=== PATIENT | male | born 1955 | race Caucasian/White ===

== ENCOUNTER 2018-05-26 15:40 | Emergency (ER) | payer OTHER, SELFPAY ==
[2018-05-26] VITALS (8 sets, daily range): BP systolic 126–133; BP diastolic 71–84; PULSE 63–66; RESP 14–19; TEMP 36.7; O2SAT 94–100; BMI 34.9
--- NOTE | 2018-05-26 15:53 | ED_ITS ---
HPI - Neck Pain/Injury General Chief Complaint: Trauma Stated Complaint: 130lbs landed on head from 20ft Time Seen by Provider: 05/26/18 15:51 Source: patient Mode of arrival: EMS Limitations: no limitations History of Present Illness HPI Narrative: This 63-year-old male comes to the emergency department with complaint of trauma. Patient with standing when 2 large boards that were Um connected together fell. There been uses scaffolding and fell about 20 ft and struck the patient on his head. There is possible launch of consciousness for very short period of time. The patient is complaining of some pain in his shoulders and arms. He has some chronic back and shoulder/arm pain. State does the worse at this time. EMS gave him fentanyl and then stood him up and got him onto the gurney. They then placed the patient in a C-collar. Patient is not having any nausea or vomiting currently. He is not having any chest pain or shortness of breath. He denies any neck or back pain currently. He is not having any new weakness. He is not having any numbness. He does not know if his tetanus is up-to-date. He currently denies any major medical issues. Related Data Home Medications Medication Instructions Recorded Confirmed czlksojayly-cqwkn-erq-vit C-Mn 1 tab PO DAILY 05/26/18 05/26/18 [Flexi Joint] lecithin 1 cap PO DAILY 05/26/18 05/26/18 naproxen sodium [Aleve] 220 mg PO BID 05/26/18 05/26/18 Previous Rx's Medication Instructions Recorded ondansetron [Zofran ODT] 4 mg PO Q6-8H PRN #15 tab 05/26/18 oxycodone-acetaminophen [Percocet] 2 tab PO Q4-6H PRN #15 tab 05/26/18 Allergies Allergy/AdvReac Type Severity Reaction Status Date / Time ibuprofen Allergy Intermediate Hives Verified 05/26/18 16:30 iodine Allergy Intermediate Hives Verified 05/26/18 16:30 Review of Systems Review of Systems All systems reviewed & are unremarkable except as noted in HPI and below Constitutional Reports headache(s) (Mild) Eyes Denies blurry vision, Denies change in vision and Denies loss of vision ENT Ears, Nose, Mouth, and Throat: Denies dizziness, Reports headache(s) (Mild) and Denies neck pain Cardiovascular Denies chest pain, Denies irregular heart rhythm, Denies lightheadedness, Denies palpitations, Denies dyspnea, Denies dyspnea on exertion and Denies orthopnea Respiratory Denies cough, Denies dyspnea, Denies dyspnea on exertion and Denies wheezing Gastrointestinal Gastrointestinal: Denies abdominal pain, Denies change in bowel habits, Denies diarrhea, Denies nausea and Denies vomiting Genitourinary Denies urinary incontinence Musculoskeletal Reports as per HPI, Denies back pain, Denies neck pain, Denies numbness, Reports radiating pain into limb (Bilateral upper extremity) and Reports tingling Integumentary/Breasts Reports as per HPI (Laceration on scalp and above right brow) Neurologic Denies abnormal speech, Denies dizziness, Reports headache(s) (Mild), Denies lack of coordination, Denies focal weakness, Denies loss of vision, Denies numbness, Denies convulsions, Denies seizure-like activity, Denies sensory deficit and Reports tingling Endocrine Denies palpitations Allergic/Immunologic Denies wheezing PFSH Social History marital status: household members: spouse Smoking Status: Current every day smoker Exam Narrative Exam Narrative: GEN: C-collar prior to arrival, no backboard. Patient appears in mild distress. HEAD: Patient has a large midline laceration of his scalp that is approximately 8 cm in length, there is no galea involvement but is into the subcutaneous tissue, patient also has a small laceration above the right brow that is about a cm and a half, there is some subcutaneous involvement but nothing deeper, no raccoon/Escobar sign. NECK: Nontender, painless range of motion, trachea midline Positive Nexus criteria, there is no mid line tenderness, positive for distracting injury, no altered mental status, neuro deficit, recent EtOH. EYES: PERRLA, EOMI ENT: External inspection normal, trachea is midline, TM's are normal no hemotypanum, Nares are clear, no septal hematoma, no dental or oral injury, airway is normal and with normal occlusion, No bony tenderness RESP: Chest is nontender and has symmetric movement, no ecchymosis, breath sounds are normal no crackles, wheezes or rales CVS: Heart sounds are normal, no murmur noted, No JVD. ABG/GI: Nontender, soft, normal bowel sounds, no distention, no organomegaly, pelvic rock is negative NEURO: Oriented AOx3, neuro is grossly intact, sensation and motor is normal all 4 extremities moving, cranial nerves II through XII are intact, GCS is 15 PSYCH: Normal mood and affect SKIN: Intact except as above, warm and dry, no crepitus and without decubitus BACK: No CVA tenderness, no vertebral tenderness, no step-off's, no crepitus EXT: Atraumatic, hips are nontender, no pedal edema, normal color and temperature, normal range of motion of extremities with normal tendon exam, 5/5 muscle strength with full motion, patient does not have any decreased sensation upper extremities or lower extremities but he does have pain with light touch to the upper extremities, 2+ pulses in all four extremities Initial Vital Signs Initial Vital Signs: Vital Signs Pulse Rate 66 05/26/18 16:00 Respiratory Rate 15 05/26/18 16:00 Blood Pressure 132/74 05/26/18 16:00 Pulse Oximetry 98 05/26/18 16:00 Procedures Laceration Repair Laceration 1: Site: face (right brow) Side (If applicable): right Size (cm): 1.5 Description: linear Depth: simple, single layer Local Anesthetic: lidocaine 1% Amount of anesthesia used (mL): 2 Pre-repair: wound explored and irrigated extensively Skin layer closed with: vicryl Size (cm): 5-0 Number of sutures: 3 Technique: simple, interrupted Laceration 2: Site: scalp (midline) Size (cm): 8 Description: linear Depth: involves muscle layer Local Anesthetic: lidocaine 1% Amount of anesthesia used (mL): 10 Pre-repair: wound explored, irrigated extensively and deep structures intact (no galeal involvement) Skin layer closed with: other (ronald #12) Course Orders Ordered: ED Orders 05/26/18 15:51 CT cervical spine wo con Stat EKG-12 Lead Stat 05/26/18 15:52 CT chest abd pel w con Stat CT head/brain wo con Stat 05/26/18 16:04 Complete Blood Count AUTO DIFF Stat Comprehensive Metabolic Panel Stat Ethanol (ETOH) Stat Lipase Stat Partial Thromboplastin Time Stat Prothrombin Time INR Stat Type and Screen Stat Discontinued Medications Hydromorphone HCl (Dilaudid) 1 mg IV NOW ONE Stop: 05/26/18 17:46 Last Admin: 05/26/18 17:55 Dose: 1 mg Hydromorphone HCl (Dilaudid) 1 mg IV NOW ONE Stop: 05/26/18 16:51 Last Admin: 05/26/18 16:50 Dose: 1 mg Morphine Sulfate (Morphine Sulfate) 4 mg IV NOW ONE Stop: 05/26/18 16:39 Last Admin: 05/26/18 16:24 Dose: 4 mg Ondansetron HCl (Zofran) 4 mg IV NOW ONE Stop: 05/26/18 16:40 Last Admin: 05/26/18 16:25 Dose: 4 mg Ondansetron HCl (Zofran Odt Prepack) 1 bottle MISC SEEINSTR ONE Stop: 05/26/18 19:22 Oxycodone/Acetaminophen (Percocet 5/325) 1 tab PO NOW ONE Stop: 05/26/18 19:22 Vital Signs - 8 hr 05/26/18 16:00 05/26/18 16:30 05/26/18 17:10 Pulse Rate 66 65 64 Respiratory Rate 15 19 17 Blood Pressure [Right Arm] 132/74 133/71 133/82 Pulse Oximetry 98 100 96 05/26/18 17:45 05/26/18 18:14 Pulse Rate 63 66 Respiratory Rate 14 16 Blood Pressure [Right Arm] 126/76 Pulse Oximetry 94 99 MDM - Neck Pain/Injury Lab Data Attestation: I reviewed the patient's lab results. Result diagrams: 05/26/18 16:04 05/26/18 16:04 Lab Results 05/26/18 05/26/18 05/26/18 Range/Units 16:04 16:04 16:04 WBC 6.4 (4.5-11.0) X10^3/uL RBC 4.17 L (4.5-5.9) X10^6/uL Hgb 13.2 L (13.5-17.5) g/dL Hct 38.9 L (41-53) % MCV 93.3 (80-100) fL MCH 31.8 (26-34) PG MCHC 34.0 (30-36) % RDW 12.6 (11.6-14.8) % Plt Count 201 (150-400) X10^3/uL Neut % (Auto) 68.3 (50-75) % Lymph % (Auto) 23.2 L (25-40) % [place] % (Auto) 6.9 (3-14) % Eos % (Auto) 0.9 L (2-4) % Baso % (Auto) 0.7 (0-2) % Neut # (Auto) 4300 (8707-0474) /uL PT 12.2 (10.1-12.7) SECONDS INR 1.1 (0.9-1.3) APTT 25 L (26.4-36.2) SECONDS Sodium 140 (137-145) mmol/L Potassium 3.7 (3.4-5.1) mmol/L Chloride 105 (98-107) mmol/L Carbon Dioxide 27 (22-32) mmol/L BUN 20 (9-20) mg/dL Creatinine 0.70 (0.66-1.25) mg/dL Estimated GFR > 60.0 (>60) mL/min BUN/Creatinine Ratio 28.6 H (6-22) Glucose 97 (80-110) mg/dL Calcium 8.6 (8.4-10.2) mg/dL Total Bilirubin 0.5 (0.2-1.3) mg/dL AST 32 (17-59) IU/L ALT 43 (21-72) IU/L Alkaline Phosphatase 52 (38-126) U/L Total Protein 6.8 (6.3-8.2) g/dL Albumin 3.8 (3.5-5.0) g/dL Globulin 3.0 (1.7-4.1) g/dL Albumin/Globulin Ratio 1.3 (1.0-2.8) Lipase 79 (23-300) U/L Ethyl Alcohol < 10 mg/dL Blood Type Antibody Screen 05/26/18 Range/Units 16:04 WBC (4.5-11.0) X10^3/uL RBC (4.5-5.9) X10^6/uL Hgb (13.5-17.5) g/dL Hct (41-53) % MCV (80-100) fL MCH (26-34) PG MCHC (30-36) % RDW (11.6-14.8) % Plt Count (150-400) X10^3/uL Neut % (Auto) (50-75) % Lymph % (Auto) (25-40) % [place] % (Auto) (3-14) % Eos % (Auto) (2-4) % Baso % (Auto) (0-2) % Neut # (Auto) (9142-4475) /uL PT (10.1-12.7) SECONDS INR (0.9-1.3) APTT (26.4-36.2) SECONDS Sodium (137-145) mmol/L Potassium (3.4-5.1) mmol/L Chloride (98-107) mmol/L Carbon Dioxide (22-32) mmol/L BUN (9-20) mg/dL Creatinine (0.66-1.25) mg/dL Estimated GFR (>60) mL/min BUN/Creatinine Ratio (6-22) Glucose (80-110) mg/dL Calcium (8.4-10.2) mg/dL Total Bilirubin (0.2-1.3) mg/dL AST (17-59) IU/L ALT (21-72) IU/L Alkaline Phosphatase (38-126) U/L Total Protein (6.3-8.2) g/dL Albumin (3.5-5.0) g/dL Globulin (1.7-4.1) g/dL Albumin/Globulin Ratio (1.0-2.8) Lipase (23-300) U/L Ethyl Alcohol mg/dL Blood Type A Negative Antibody Screen Negative Point of Care Testing Glucose POC 98 Urine Dip Bedside Urine Glucose Negative Bedside Urine Bilirubin - Negative Bedside Urine Ketone - Negative Urine Specific Devine 1.015 Bedside Urine Occult Blood - Negative Bedside Urine pH 6.0 Bedside Urine Protein - Negative Bedside Urine Urobilinogen - Negative Bedside Urine Nitrite - Negative Bedside Urine Leukocytes - Negative Esterase Imaging Data CT scan - head: Radiologist's impression: Rj La 63 M 1955 Allergy/Adv: ibuprofen, iodine CLOSE Head CT (Signed) Ruiz Kidd - 05/26/18 Chest/Abdomen/Pelvis CT (Signed) Patricio Bashir - 05/26/[address] (Signed) Ruiz Kidd - 05/26/18 View Report History [address] [address] [address] Scan Report Signed Patient: Rj La MR#: [id number] : 1955 Acct:[id number] Age/Sex: 63 / M Date of Service: 05/26/18 Loc: ED Accession Number: [id number] Procedure: CT head/brain wo con Ordering Provider: Alisia Magallanes D.O. PROCEDURE: CT HEAD/BRAIN WO CON INDICATIONS: 130# shelf fell on head TECHNIQUE: Noncontrast 4.5 mm thick angled axial sections acquired from the foramen magnum to the vertex, with coronal and sagittal reformats. For radiation dose reduction, the following was used: automated exposure control, adjustment of mA and/or kV according to patient size. COMPARISON: None. FINDINGS: Image quality: Excellent. CSF spaces: Basal cisterns are patent. No extra-axial fluid collections. The ventricles are symmetric in size and shape. Brain: No intracranial hemorrhage, mass, or mass effect. The johnson-white matter junction appears preserved. Skull and face: There is soft tissue swelling and a laceration of the scalp at the vertex with associated small subcutaneous hematoma. Calvarium and visualized facial bones are intact, without displaced or depressed fracture identified. Sinuses: Visualized sinuses and mastoids are clear. IMPRESSION: 1. No acute intracranial abnormality. 2. Soft tissue laceration with subcutaneous hematoma at the vertex without underlying fracture. Dictated by: Ruiz Kidd M.D. on 05/26/2018 at 15:06 Approved by: Ruiz Kidd M.D. on 05/26/2018 at 15:08 CT C-spine: Radiologist's impression: [place] [address] CT Scan Report Signed Patient: Rj La MR#: [id number] : 1955 Acct:[id number] Age/Sex: 63 / M Date of Service: 05/26/18 Loc: ED Accession Number: [id number] Procedure: CT cervical spine wo con Ordering Provider: Alisia Magallanes D.O. PROCEDURE: CT CERVICAL SPINE WO CON INDICATIONS: 130# shelf fell on head TECHNIQUE: Noncontrast 3 mm thick sections acquired from the skull base to the T4 level. Sagittal and coronal reformats were then constructed. For radiation dose reduction, the following was used: automated exposure control, adjustment of mA and/or kV according to patient size. COMPARISON: None. FINDINGS: Image quality: Excellent. Bones: No fractures or dislocations. The there is multilevel mild disc space narrowing with mild osteophytosis and subchondral sclerosis in the lower lumbar spine most prominent at C6-C7. Mild multilevel uncovertebral and facet arthropathy also demonstrated. Visualized superior ribs are intact. Soft tissues: Prevertebral soft tissues are normal in thickness. No paravertebral hematomas. No apical pneumothoraces. IMPRESSION: 1. No fracture or subluxation. 2. Mild multilevel degenerative changes most prominent in the lower cervical spine. Dictated by: Ruiz Kidd M.D. on 05/26/2018 at 15:08 Approved by: Ruiz Kidd M.D. on 05/26/2018 at 15:12 CT chest abdomen pelvis: Radiologist's impression: CT Scan Report Signed Patient: Rj La MR#: [id number] : 1955 Acct:[id number] Age/Sex: 63 / M Date of Service: 05/26/18 Loc: ED Accession Number: [id number] Procedure: CT chest abd pel w con Ordering Provider: Alisia Magallanes D.O. PROCEDURE: CT CHEST ABD PEL W CON INDICATIONS: 130# shelf fell on head TECHNIQUE: After the administration of intravenous contrast, 5 mm thick sections acquired from the lung apices to the symphysis. 5 mm coronal and sagittal reformats were performed, with additional 7 mm MIP reformats through the lungs. For radiation dose reduction, the following was used: automated exposure control, adjustment of mA and/or kV according to patient size. COMPARISON: None. FINDINGS: Image quality: Excellent. CHEST: Lungs and pleura: No acute airspace opacities. No pleural effusions or pneumothorax. Central and peripheral airways appear patent and normal in caliber. Note is made of a radiodensity that measures up to 6 mm in dimension, slightly spiculated, at the right midlung. This is located within the within the lateral right lower lobe, seen on series 12 image 49. Mediastinum: Heart size is normal. No pericardial effusion. No mediastinal or hilar adenopathy by size criteria. Thoracic aorta and central pulmonary arteries are normal in size. Esophagus is normal in caliber. No hiatal hernia. Chest wall: No axillary or supraclavicular adenopathy by size criteria. Thyroid gland appears normal. ABDOMEN: Solid organs: Liver is normal in size and enhancement. Several small scattered simple appearing hepatic and renal cysts are present. Gallbladder appears normal. Biliary system is non dilated. Pancreas enhances normally. Spleen is normal in size and enhancement. No adrenal nodules. Kidneys demonstrate normal size and enhancement, without hydronephrosis. Peritoneum and bowel: Bowel loops demonstrate normal wall thickness and caliber. No free fluid or air. Nodes and vessels: No retroperitoneal or mesenteric adenopathy by size criteria. Aorta and inferior vena cava are normal in size. Miscellaneous: No ventral hernias. PELVIS: Genitourinary: Bladder wall thickness is normal. Miscellaneous: No inguinal hernias or adenopathy. Bones: No suspicious bony lesions. No vertebral body compression fractures. IMPRESSION: No trauma found. Incidental finding of a 6 mm right midlung nodule , within the lateral aspect of the right lower lobe, and a followup noncontrast chest CT is recommended in 6 months to further assess this abnormality and confirm absence of bladder changer time. No prior comparison CT is available through this area for review. Dictated by: Patricio Bashir M.D. on 05/26/2018 at 16:14 Approved by: Patricio Bashir M.D. on 05/26/2018 at 16:19 ECG Data Attestation: I personally reviewed and interpreted this ECG as follows: Interpretation: Sinus bradycardia rate of 57, P are 187, [place] 107 QTC of 412. No ST elevation depression appreciated. Nonspecific changes. MDM Narrative Medical decision making narrative: Patient arrived with was described as 130 lb set of orders that were being uses scaffolding falling onto the patient's head with knocking to him to the ground in a brief loss of consciousness. Patient was complaining of some pain in his upper extremities although no pain in the neck or back specifically. Based on the mechanism of his injury CT of head, neck as well as chest abdomen pelvis was elected to be ordered. Patient's lab work did not show any acute changes. Imaging only showed a small incidental pulmonary nodule which the patient was informed of and they are aware is present. Patient neuro exam was normal although he did have pain into both arms patient has had a problem in the past with pain in both upper extremities at the same time secondary to a traumatic injury that caused his pectoral muscle to be pulled from the bone, this is the way the patient has described it. Um he has had increased pain from his normal. He did respond to pain medications in the pain has subsequently improved. We did discuss that if he had worsening symptoms or any new weakness or, tingling, paresthesias he should return as there is always potential for nerve her spinal cord injury that is not noted on CT imaging. Patient did not have any bony tenderness to his neck exam any had full range of motion without any pain. He had a large laceration on his scalp as well as a small on his brow which were both sutured. He did have nausea and vomiting after narcotics which is typical for him. I suspect he also has a concussion and was given some Zofran to take with pain medication. Also given concussion directions to him as well as his at bedside. Discharge Plan Departure Patient Disposition: Home Clinical Impression: Concussion, Laceration of scalp, Eyebrow laceration, Acute extremity pain Instructions: DI for Concussion Activity Restrictions/Additional Instructions: Return to the emergency department if you have sudden severe headaches comma decreased mental status, persistent vomiting, new weakness or numbness or rapidly increasing pain in her upper extremities or neck. If you have new numbness or tingling in her lower extremities. Signs of infection at your laceration sites. Take antinausea medication about 10 or 15 min prior to taking the pain medication. Pain medication can make you sleepy do not drive, perform hazards activities or make any major decisions while taking it. Wound Care: Keep wound(s) clean and dry. Wash daily with soap and water only. Do not use over the counter products (alcohol or peroxide)on the wounds unless instructed by a physician. If wound condition worsens (increased/expanding redness, developing fluid blisters, or worsening pain), either contact your doctor for an urgent re- assessment , or return to the Emergency Department. Return to the Emergency Department for any new or worsening symptoms. Return to the ED, urgent care, or vist a primary care doctor for removal or suture or ronald in 7 to 10 days Return if fever greater than 100.4 Fahrenheit, increased swelling, increasing pain or worsening symptoms such as increased discharge or spreading redness. Use warm compresses 3 times daily for 20 minutes to the affected area. If there is packing in place do not pull it out, if it falls out do not try to replace it. Prescriptions: New oxycodone-acetaminophen [Percocet] 5-325 mg tablet 2 tab PO Q4-6H PRN (Reason: pain) Qty: 15 RF: 0 ondansetron [Zofran ODT] 4 mg tablet,disintegrating 4 mg PO Q6-8H PRN (Reason: nausea and vomiting) Qty: 15 RF: 0 No Action naproxen sodium [Aleve] 220 mg Tablet 220 mg PO BID RF: 0 [id number]-jsdwy-cqc-vit C-Mn [Flexi Joint] 500-400-166.6 mg Tablet 1 tab PO DAILY RF: 0 lecithin 1 cap PO DAILY RF: 0
[2018-05-26 16:18] LABS: Add Manual Diff / Slide Review NO; Basophils Percent Auto 0.7 % (0-2); Eosinophils Percent Auto 0.9 % (2-4); Hematocrit 38.9 % (41-53); Hemoglobin 13.2 g/dL (13.5-17.5); Lymphocytes Percent Auto 23.2 % (25-40); Mean Corpuscular Hemoglobin 31.8 PG (26-34); Mean Corpuscular Volume 93.3 fL (80-100); Monocytes Percent Auto 6.9 % (3-14); Neutrophils Absolute Auto 4300 /uL (3000-5900); Neutrophils Percent Auto 68.3 % (50-75); Platelet Count 201 X10^3/uL (150-400); Red Blood Cell Count 4.17 X10^6/uL (4.5-5.9); Red Cell Distribution Width 12.6 % (11.6-14.8); White Blood Cell Count 6.4 X10^3/uL (4.5-11.0)
[2018-05-26] MEDS: MORPHINE 5 MG/ML INJ 4 MG IV (16:24)
[2018-05-26 16:25] LABS: INR 1.1 (0.9-1.3); Prothrombin Time 12.2 SECONDS (10.1-12.7)
[2018-05-26] MEDS: ONDANSETRON 4 MG/2 ML INJ IV ×2 (16:25→19:48)
[2018-05-26 16:28] LABS: PTT Partial Thromboplastin Tim 25 SECONDS (26.4-36.2)
[2018-05-26 16:31] LABS: Alanine Aminotransferase 43 IU/L (21-72); Albumin 3.8 g/dL (3.5-5.0); Albumin Globulin Ratio 1.3 (1.0-2.8); Alkaline Phosphatase 52 U/L (38-126); Aspartate Aminotransferase 32 IU/L (17-59); BUN Creatinine Ratio 28.6 (6-22); Bilirubin Total 0.5 mg/dL (0.2-1.3); Blood Urea Nitrogen 20 mg/dL (9-20); Calcium 8.6 mg/dL (8.4-10.2); Carbon Dioxide 27 mmol/L (22-32); Chloride 105 mmol/L (98-107); Estimated Glomerular Filt Rate > 60.0 mL/min (>60); Ethanol (ETOH) < 10 mg/dL; Glucose 97 mg/dL (80-110); HEMOLYSIS < 15 (0-50); Lipase 79 U/L (23-300); Potassium 3.7 mmol/L (3.4-5.1); Sodium 140 mmol/L (137-145); Total Protein 6.8 g/dL (6.3-8.2)
[2018-05-26] MEDS: DIPHTH,PERTUSS(ACELL),TET VAC 0.5 ML SYRINGE IM (16:33)
[2018-05-26] MEDS: HYDROMORPHONE 1 MG INJ IV ×2 (16:50→17:55)
--- NOTE | 2018-05-26 16:53 | PC.NURSE ---
please see trauma flowsheet
[2018-05-26] MEDS: ONDANSETRON 4 MG ODT PREPACK 1 BOTTLE MISC (19:48)
[2018-05-26] MEDS: OXYCODONE/ACETAMINOPHEN 5/325 TABLET 1 TAB PO (19:50)
--- NOTE | 2018-05-26 19:52 | PC.NURSE ---
pt with head wounds. first wound is above right eyebrow. Dr. Magallanes sutured. second head wound on top of head required multiple ronald and surgiseal over the ronald. applied 4x4 with abdominal binder over. applied kerlix and stockingnette to hold dressing in place. pt tolerated well. pt had some episodes of vomitting during his hospital stay.
== END 2018-05-26 19:58 | disposition home or self-care (01) ==
PROVIDERS: Emergency Provider Emergency Medicine; Family Provider Nurse Practitioner Family; PCP Nurse Practitioner Family
DX: S06.0X0A Concussion without loss of consciousness, initial encounter (principal); S01.01XA Laceration without foreign body of scalp, initial encounter; S01.119A Laceration without foreign body of unspecified eyelid and periocular area, initial encounter; W20.8XXA Other cause of strike by thrown, projected or falling object, initial encounter
CPT/HCPCS: 12004; 12011; 36415; 70450; 71260; 72125; 74177; 80053; 80320; 81003; 82962; 83690; 85025; 85610; 85730; 86850; 86900; 86901; 90715; 93005; 96374; 96375; 96376; 99285; 99291; J1170; J2270; J2405; Q9967

== ENCOUNTER 2018-05-27 14:37 | Emergency (ER) | payer OTHER, SELFPAY ==
[2018-05-27 14:39] VITALS: BP 128/88; PULSE 68; RESP 20; TEMP 36.1; O2SAT 98; BMI 33.7
--- NOTE | 2018-05-27 14:50 | ED_ITS ---
HPI - Nausea/Vomiting/Diarrhea <AMARA Harmon - Last Filed: 05/27/18 22:28> General Chief complaint: Nausea/Vomiting/Diarrhea Stated complaint: NAUSEA Time Seen by Provider: 05/27/18 14:49 Source: patient Mode of arrival: ambulatory Limitations: no limitations History of Present Illness HPI Narrative: 63-year-old healthy male that is a smoker here for complaint of nausea vomiting today. He states he had 5 episodes of vomiting today. He was seen yesterday for head trauma after board fell approximately 20 ft landing on top of his head. Imaging was obtained yesterday with head CT and were negative for any acute findings. Laceration to top of his scalp was closed with ronald. He denies any loss of consciousness today. He states he may have had a period of brief loss of consciousness yesterday right after the incident he is ambulatory into the emergency room. He has been using Zofran ODT to help with nausea vomiting however he states he still having nausea vomiting. He has also been using Percocet as needed for discomfort. MD complaint: vomiting Related Data Home Medications Medication Instructions Recorded Confirmed ijykiddecne-jkxin-klc-vit C-Mn 1 tab PO DAILY 05/26/18 05/27/18 [Flexi Joint] lecithin 1 cap PO DAILY 05/26/18 05/27/18 naproxen sodium [Aleve] 220 mg PO BID 05/26/18 05/27/18 Previous Rx's Medication Instructions Recorded ondansetron [Zofran ODT] 4 mg PO Q6-8H PRN #15 tab 05/26/18 oxycodone-acetaminophen [Percocet] 2 tab PO Q4-6H PRN #15 tab 05/26/18 promethazine 25 mg PO Q6H PRN #16 tab 05/27/18 Allergies Allergy/AdvReac Type Severity Reaction Status Date / Time ibuprofen Allergy Intermediate Hives Verified 05/26/18 16:30 iodine Allergy Intermediate Hives Verified 05/26/18 16:30 Review of Systems <AMARA Harmon - Last Filed: 05/27/18 22:28> Constitutional Denies chills, Denies fever(s), Denies lethargy and Denies weakness Eyes Denies change in vision, Denies eye discharge, Denies irritation and Denies loss of vision ENT Ears, Nose, Mouth, and Throat: Denies change in voice, Denies neck pain and Denies sore throat Cardiovascular Denies chest pain, Denies irregular heart rhythm, Denies lightheadedness, Denies palpitations, Denies dyspnea, Denies dyspnea on exertion and Denies orthopnea Respiratory Denies cough, Denies dyspnea, Denies dyspnea on exertion and Denies wheezing Gastrointestinal Gastrointestinal: Reports vomiting Genitourinary Denies hematuria, Denies flank pain, Denies urinary incontinence and Denies urinary urgency Musculoskeletal Denies neck pain Integumentary/Breasts Denies pruritus, Denies erythema, Denies rash and Denies wounds Neurologic Denies confusion, Denies loss of vision and Denies weakness Psychiatric Denies anxiety, Denies confusion, Denies depression, Denies homicidal ideation and Denies suicidal ideation Endocrine Denies palpitations Hematologic/Lymphatic Denies easy bruising Allergic/Immunologic Denies wheezing Exam <AMARA Harmon - Last Filed: 05/27/18 22:28> Initial Vital Signs Initial Vital Signs: Vital Signs Temperature 97.0 F L 05/27/18 14:39 Pulse Rate 68 05/27/18 14:39 Respiratory Rate 20 05/27/18 14:39 Blood Pressure 128/88 05/27/18 14:39 Pulse Oximetry 98 05/27/18 14:39 Const General: cooperative and well developed Nutritional Appearance: well nourished Orientation: alert, awake, oriented x3 and not confused [facility] Head: other ( 8 cm laceration to top of scalp appears to be healing well with no bleeding. No signs of infection.) Ears: external ears normal Nose: external nose normal and No nasal discharge Mouth: oral mucosae normal and moist mucous membranes Eyes Conjunctivae: conjunctivae normal Sclera: sclerae normal Pupils: PERRL EOM: EOM intact bilaterally Neck Neck: normal visual inspection, trachea midline, No lymphadenopathy, No midline deformity and No JVD Lymphatic: No lymphedema Resp Effort & Inspection: normal respiratory effort, able to speak in complete sentences, no respiratory distress and no use of accessory muscles Auscultation: clear to auscultation bilaterally, no rales, no rhonchi and no wheezes Cardio Rate: regular rate Rhythm: regular rhythm Heart Sounds: no click, no gallops, no murmurs and no rubs Pulses: normal peripheral pulses GI Inspection: non-distended Palpation: soft, no hepatosplenomegaly, No guarding, No pulsatile mass and No tender Auscultation: normal bowel sounds Skin General: no rashes or lesions noted, No jaundice and No petechiae Neuro General: alert, oriented x3, gait normal and no focal motor deficits Speech: speech normal <Mikel Mas DO - Last Filed: 05/28/18 07:18> Initial Vital Signs Initial Vital Signs: Vital Signs Temperature 97.0 F L 05/27/18 14:39 Pulse Rate 68 05/27/18 14:39 Respiratory Rate 20 05/27/18 14:39 Blood Pressure 128/88 05/27/18 14:39 Pulse Oximetry 98 05/27/18 14:39 Course <AMARA Harmon - Last Filed: 05/27/18 22:28> Orders Ordered: Discontinued Medications Acetaminophen (Tylenol) 650 mg PO NOW ONE Stop: 05/27/18 16:45 Last Admin: 05/27/18 16:49 Dose: 650 mg Sodium Chloride (Normal Saline 0.9%) 1,000 mls @ 1,000 mls/hr IV BOLUS ONE Stop: 05/27/18 16:33 Last Infusion: 05/27/18 17:11 Dose: 0 mls/hr Admin: 05/27/18 15:41 Dose: 1,000 mls/hr Ondansetron HCl (Zofran) 4 mg IV NOW ONE Stop: 05/27/18 15:35 Last Admin: 05/27/18 15:41 Dose: 4 mg Vital Signs - 8 hr 05/27/18 14:39 05/27/18 17:08 Temperature 97.0 F L Pulse Rate 68 68 Respiratory Rate 20 15 Blood Pressure 128/88 117/79 Pulse Oximetry 98 99 <Mikel Mas DO - Last Filed: 05/28/18 07:18> Orders Ordered: Discontinued Medications Acetaminophen (Tylenol) 650 mg PO NOW ONE Stop: 05/27/18 16:45 Last Admin: 05/27/18 16:49 Dose: 650 mg Sodium Chloride (Normal Saline 0.9%) 1,000 mls @ 1,000 mls/hr IV BOLUS ONE Stop: 05/27/18 16:33 Last Infusion: 05/27/18 17:11 Dose: 0 mls/hr Admin: 05/27/18 15:41 Dose: 1,000 mls/hr Ondansetron HCl (Zofran) 4 mg IV NOW ONE Stop: 05/27/18 15:35 Last Admin: 05/27/18 15:41 Dose: 4 mg Vital Signs - 8 hr 05/27/18 14:39 05/27/18 17:08 Temperature 97.0 F L Pulse Rate 68 68 Respiratory Rate 20 15 Blood Pressure 128/88 117/79 Pulse Oximetry 98 99 MDM - Nausea/Vomiting/Diarrhea <AMARA Harmon - Last Filed: 05/27/18 22:28> Lab Data Result diagrams: 05/27/18 15:40 05/27/18 15:40 Lab Results 05/27/18 05/27/18 Range/Units 15:40 15:40 WBC 6.6 (4.5-11.0) X10^3/uL RBC 4.51 (4.5-5.9) X10^6/uL Hgb 14.6 (13.5-17.5) g/dL Hct 41.8 (41-53) % MCV 92.7 (80-100) fL MCH 32.3 (26-34) PG MCHC 34.9 (30-36) % RDW 12.6 (11.6-14.8) % Plt Count 213 (150-400) X10^3/uL Neut % (Auto) 74.0 (50-75) % Lymph % (Auto) 17.6 L (25-40) % [place] % (Auto) 7.5 (3-14) % Eos % (Auto) 0.5 L (2-4) % Baso % (Auto) 0.4 (0-2) % Neut # (Auto) 4900 (3613-3332) /uL Sodium 144 (137-145) mmol/L Potassium 3.8 (3.4-5.1) mmol/L Chloride 102 (98-107) mmol/L Carbon Dioxide 30 (22-32) mmol/L BUN 20 (9-20) mg/dL Creatinine 0.60 L (0.66-1.25) mg/dL Estimated GFR > 60.0 (>60) mL/min BUN/Creatinine Ratio 33.3 H (6-22) Glucose 104 (80-110) mg/dL Calcium 9.5 (8.4-10.2) mg/dL Total Bilirubin 0.8 (0.2-1.3) mg/dL AST 30 (17-59) IU/L ALT 44 (21-72) IU/L Alkaline Phosphatase 60 (38-126) U/L Total Protein 7.6 (6.3-8.2) g/dL Albumin 4.4 (3.5-5.0) g/dL Globulin 3.2 (1.7-4.1) g/dL Albumin/Globulin Ratio 1.4 (1.0-2.8) Imaging Data CT scan - head: Radiologist's impression: [address] [address] [address] Scan Report Signed Patient: Rj La [facility]#: [id number] : 7Acct:[id number] Age/Sex: 63 / MDate of Service: 05/27/18 Loc: ED Accession Number: [id number] Procedure: CT head/brain wo con Ordering Provider: Johnnie Pro PROCEDURE: CT HEAD/BRAIN WO CON INDICATIONS: head injury yesterday with frequent vomiting today TECHNIQUE: Noncontrast 4.5 mm thick angled axial sections acquired from the foramen magnum to the vertex, with coronal and sagittal reformats. For radiation dose reduction, the following was used: automated exposure control, adjustment of mA and/or kV according to patient size. COMPARISON: [facility], CT, CT HEAD/BRAIN WO CON, 05/26/2018, 15:36. FINDINGS: Image quality: Excellent. CSF spaces: Basal cisterns are patent. No extra-axial fluid collections. Ventricles are normal in size and shape. Brain: No midline shift. No intracranial masses or hemorrhage. Mello-white matter interface is normal. Skull and face: Calvarium and visualized facial bones are intact, without suspicious lesions. Anterior midline scalp ronald. Mild posterior scalp soft tissue swelling. Sinuses: Visualized sinuses and mastoids are clear. IMPRESSION: No acute intracranial process. Post traumatic sequela in the scalp. Dictated by: Tashi Dobbs M.D. on 05/27/2018 at 15:57 Approved by: Tashi Dobbs M.D. on 05/27/2018 at 15:59 [facility] Narrative Medical decision making narrative: Repeat CT scan of the head was obtained today and was negative for any acute findings. CBC and Chem panel were obtained were unremarkable. Signs and symptoms present as secondary to post concussive syndrome. Will add Phenergan to help with nausea vomiting to the Zofran. Will try using Tylenol as needed for discomfort and holding on Percocet unless having breakthrough pain is see if it helps his nausea vomiting. Plenty of fluids and rest. Follow up with primary care provider the next couple days for re-evaluation. For any worsening symptoms return to the emergency room. <Mikel Mas, DO - Last Filed: 05/28/18 07:18> Lab Data Lab Results 05/27/18 05/27/18 Range/Units 15:40 15:40 WBC 6.6 (4.5-11.0) X10^3/uL RBC 4.51 (4.5-5.9) X10^6/uL Hgb 14.6 (13.5-17.5) g/dL Hct 41.8 (41-53) % MCV 92.7 (80-100) fL MCH 32.3 (26-34) PG MCHC 34.9 (30-36) % RDW 12.6 (11.6-14.8) % Plt Count 213 (150-400) X10^3/uL Neut % (Auto) 74.0 (50-75) % Lymph % (Auto) 17.6 L (25-40) % [place] % (Auto) 7.5 (3-14) % Eos % (Auto) 0.5 L (2-4) % Baso % (Auto) 0.4 (0-2) % Neut # (Auto) 4900 (2970-1321) /uL Sodium 144 (137-145) mmol/L Potassium 3.8 (3.4-5.1) mmol/L Chloride 102 (98-107) mmol/L Carbon Dioxide 30 (22-32) mmol/L BUN 20 (9-20) mg/dL Creatinine 0.60 L (0.66-1.25) mg/dL Estimated GFR > 60.0 (>60) mL/min BUN/Creatinine Ratio 33.3 H (6-22) Glucose 104 (80-110) mg/dL Calcium 9.5 (8.4-10.2) mg/dL Total Bilirubin 0.8 (0.2-1.3) mg/dL AST 30 (17-59) IU/L ALT 44 (21-72) IU/L Alkaline Phosphatase 60 (38-126) U/L Total Protein 7.6 (6.3-8.2) g/dL Albumin 4.4 (3.5-5.0) g/dL Globulin 3.2 (1.7-4.1) g/dL Albumin/Globulin Ratio 1.4 (1.0-2.8) Discharge Plan Departure Patient Disposition: Home Clinical Impression: Post concussion syndrome Discharge Date/Time: 05/27/18 17:12 Interventions: ED Discharge Assessment Last Done: 05/27/18 17:08 Instructions: DI for Postconcussion Syndrome Activity Restrictions/Additional Instructions: CT of the head was obtained and was negative for any acute findings. Laboratory results were unremarkable. Signs and symptoms present as a nausea vomiting secondary to post concussive syndrome. Continue using the Zofran as prescribed for nausea. Phenergan is added to help for nausea vomiting not covered by the Zofran use as directed. Use Tylenol as needed for any discomfort. Try to hold on Percocet as this can increasednausea and vomiting for significant pain not covered by the Tylenol. Follow up with primary care provider in the next couple days for re-evaluation. Plenty of fluids and rest. For any worsening symptoms return to the emergency room. Prescriptions: New promethazine 25 mg tablet 25 mg PO Q6H PRN (Reason: nausea and vomiting) Qty: 16 RF: 0 No Action naproxen sodium [Aleve] 220 mg Tablet 220 mg PO BID RF: 0 gbxssitszfd-eioyk-ueo-vit C-Mn [Flexi Joint] 500-400-166.6 mg Tablet 1 tab PO DAILY RF: 0 lecithin 1 cap PO DAILY RF: 0 oxycodone-acetaminophen [Percocet] 5-325 mg tablet 2 tab PO Q4-6H PRN (Reason: pain) Qty: 15 RF: 0 ondansetron [Zofran ODT] 4 mg tablet,disintegrating 4 mg PO Q6-8H PRN (Reason: nausea and vomiting) Qty: 15 RF: 0 Referrals: Jacey Robertson ARNP [Primary Care Provider] - <Mikel Mas DO - Last Filed: 05/28/18 07:18> Cosign ED Attending Cosignature Attestation: I was immediately available in the department for consultation. Documentation has been reviewed. I agree with assessment and plan.
--- NOTE | 2018-05-27 15:33 | DI.CT.S_ITS ---
PROCEDURE: CT HEAD/BRAIN WO CON INDICATIONS: head injury yesterday with frequent vomiting today TECHNIQUE: Noncontrast 4.5 mm thick angled axial sections acquired from the foramen magnum to the vertex, with coronal and sagittal reformats. For radiation dose reduction, the following was used: automated exposure control, adjustment of mA and/or kV according to patient size. COMPARISON: [facility], CT, CT HEAD/BRAIN WO CON, 05/26/2018, 15:36. FINDINGS: Image quality: Excellent. CSF spaces: Basal cisterns are patent. No extra-axial fluid collections. Ventricles are normal in size and shape. Brain: No midline shift. No intracranial masses or hemorrhage. Mello-white matter interface is normal. Skull and face: Calvarium and visualized facial bones are intact, without suspicious lesions. Anterior midline scalp ronald. Mild posterior scalp soft tissue swelling. Sinuses: Visualized sinuses and mastoids are clear. IMPRESSION: No acute intracranial process. Post traumatic sequela in the scalp. Dictated by: Tashi Dobbs M.D. on 05/27/2018 at 15:57 Approved by: Tashi Dobbs M.D. on 05/27/2018 at 15:59
[2018-05-27] MEDS: SODIUM CHLORIDE 0.9% 1,000 ML 1000 ML IV (15:41)
[2018-05-27] MEDS: ONDANSETRON 4 MG/2 ML INJ IV (15:41)
[2018-05-27 15:48] LABS: Add Manual Diff / Slide Review NO; Basophils Percent Auto 0.4 % (0-2); Eosinophils Percent Auto 0.5 % (2-4); Hematocrit 41.8 % (41-53); Hemoglobin 14.6 g/dL (13.5-17.5); Lymphocytes Percent Auto 17.6 % (25-40); Mean Corpuscular HGB Conc 34.9 % (30-36); Mean Corpuscular Hemoglobin 32.3 PG (26-34); Mean Corpuscular Volume 92.7 fL (80-100); Monocytes Percent Auto 7.5 % (3-14); Neutrophils Absolute Auto 4900 /uL (3000-5900); Platelet Count 213 X10^3/uL (150-400); Red Blood Cell Count 4.51 X10^6/uL (4.5-5.9); Red Cell Distribution Width 12.6 % (11.6-14.8); White Blood Cell Count 6.6 X10^3/uL (4.5-11.0)
[2018-05-27 16:04] LABS: Alanine Aminotransferase 44 IU/L (21-72); Albumin 4.4 g/dL (3.5-5.0); Albumin Globulin Ratio 1.4 (1.0-2.8); Alkaline Phosphatase 60 U/L (38-126); Aspartate Aminotransferase 30 IU/L (17-59); BUN Creatinine Ratio 33.3 (6-22); Bilirubin Total 0.8 mg/dL (0.2-1.3); Blood Urea Nitrogen 20 mg/dL (9-20); Calcium 9.5 mg/dL (8.4-10.2); Carbon Dioxide 30 mmol/L (22-32); Chloride 102 mmol/L (98-107); Estimated Glomerular Filt Rate > 60.0 mL/min (>60); Globulin 3.2 g/dL (1.7-4.1); Glucose 104 mg/dL (80-110); HEMOLYSIS < 15 (0-50); Potassium 3.8 mmol/L (3.4-5.1); Sodium 144 mmol/L (137-145); Total Protein 7.6 g/dL (6.3-8.2)
[2018-05-27] MEDS: ACETAMINOPHEN 325 MG TABLET 650 MG PO (16:49)
[2018-05-27 17:08] VITALS: BP 117/79; PULSE 68; RESP 15; O2SAT 99
== END 2018-05-27 17:12 | disposition home or self-care (01) ==
PROVIDERS: Emergency Provider Nurse Practitioner Family; Family Provider Nurse Practitioner Family; PCP Nurse Practitioner Family
DX: F07.81 Postconcussional syndrome (principal)
CPT/HCPCS: 36591; 70450; 80053; 85025; 96361; 96374; 99283; 99284; J2405

== ENCOUNTER 2018-06-03 11:11 | Emergency (ER) | payer OTHER, SELFPAY ==
[2018-06-03 11:14] VITALS: BP 118/77; PULSE 66; RESP 18; TEMP 36.3; O2SAT 95
--- NOTE | 2018-06-03 13:43 | ED.SKABFB ---
HPI - Skin/Abscess/Foreign Bdy <AMARA Harmon - Last Filed: 06/03/18 22:11> General Chief complaint: Skin/Abscess/Foreign Body Stated complaint: Remove stiches and andres from head Time Seen by Provider: 06/03/18 13:56 Source: patient Mode of arrival: ambulatory Limitations: no limitations History of Present Illness HPI narrative: 63-year-old healthy male visit everyday smoker here for suture and staple removal. Sutures were placed on the 26 of May after a board fell on his head of a construction site. He states that he has had no signs and symptoms of infection. He denies any other concerns or complaints at this time. He states that he is feeling well. he has a follow-up appointment with his doctor next week. MD complaint: laceration Related Data Home Medications Medication Instructions Recorded Confirmed mhoziwflomx-jjtiq-mjf-vit C-Mn 1 tab PO DAILY 05/26/18 06/03/18 [Flexi Joint] lecithin 1 cap PO DAILY 05/26/18 06/03/18 naproxen sodium [Aleve] 220 mg PO BID 05/26/18 06/03/18 Previous Rx's Medication Instructions Recorded ondansetron [Zofran ODT] 4 mg PO Q6-8H PRN #15 tab 05/26/18 oxycodone-acetaminophen [Percocet] 2 tab PO Q4-6H PRN #15 tab 05/26/18 promethazine 25 mg PO Q6H PRN #16 tab 05/27/18 Allergies Allergy/AdvReac Type Severity Reaction Status Date / Time ibuprofen Allergy Intermediate Hives Verified 05/26/18 16:30 iodine Allergy Intermediate Hives Verified 05/26/18 16:30 Review of Systems <AMARA Harmon - Last Filed: 06/03/18 22:11> Review of Systems Here for suture and staple removal Constitutional Denies chills, Denies fever(s), Denies lethargy and Denies weakness Eyes Denies change in vision, Denies eye discharge, Denies irritation and Denies loss of vision ENT Ears, Nose, Mouth, and Throat: Denies change in voice, Denies neck pain and Denies sore throat Cardiovascular Denies chest pain, Denies irregular heart rhythm, Denies lightheadedness, Denies palpitations, Denies dyspnea, Denies dyspnea on exertion and Denies orthopnea Respiratory Denies cough, Denies dyspnea, Denies dyspnea on exertion and Denies wheezing Gastrointestinal Gastrointestinal: Denies abdominal pain, Denies change in bowel habits, Denies diarrhea, Denies nausea and Denies vomiting Genitourinary Denies hematuria, Denies flank pain, Denies urinary incontinence and Denies urinary urgency Musculoskeletal Denies neck pain Integumentary/Breasts Denies pruritus, Denies erythema, Denies rash and Denies wounds Neurologic Denies confusion, Denies loss of vision and Denies weakness Psychiatric Denies anxiety, Denies confusion, Denies depression, Denies homicidal ideation and Denies suicidal ideation Endocrine Denies palpitations Hematologic/Lymphatic Denies easy bruising Allergic/Immunologic Denies wheezing Exam <AMARA Harmon - Last Filed: 06/03/18 22:11> Initial Vital Signs Initial Vital Signs: Vital Signs Temperature 97.4 F L 06/03/18 11:14 Pulse Rate 66 06/03/18 11:14 Respiratory Rate 18 06/03/18 11:14 Blood Pressure 118/77 06/03/18 11:14 Pulse Oximetry 95 06/03/18 11:14 Const General: cooperative and well developed Nutritional Appearance: well nourished Orientation: alert, awake, oriented x3 and not confused HEN[facility] Head: other ( laceration to top of scalp appears to be healing well with no signs of infection. Laceration to right side of face also appears to be healing well with no signs and symptoms of infection.) Mouth: oral mucosae normal and moist mucous membranes Eyes General: appearance normal, both eyes and all related structures Eyelids: eyelids normal Conjunctivae: conjunctivae normal Sclera: sclerae normal Pupils: PERRL EOM: EOM intact bilaterally Neck Neck: normal visual inspection, trachea midline, No lymphadenopathy, No midline deformity and No JVD Lymphatic: No lymphedema Resp Effort & Inspection: normal respiratory effort, able to speak in complete sentences, no respiratory distress and no use of accessory muscles Auscultation: clear to auscultation bilaterally, no rales, no rhonchi and no wheezes Cardio Rate: regular rate Rhythm: regular rhythm Heart Sounds: no click, no gallops, no murmurs and no rubs Pulses: normal peripheral pulses <Meghan Rodriguez DO - Last Filed: 06/04/18 08:34> Initial Vital Signs Initial Vital Signs: Vital Signs Temperature 97.4 F L 06/03/18 11:14 Pulse Rate 66 06/03/18 11:14 Respiratory Rate 18 06/03/18 11:14 Blood Pressure 118/77 06/03/18 11:14 Pulse Oximetry 95 06/03/18 11:14 Course <AMARA Harmon - Last Filed: 06/03/18 22:11> Vital Signs - 8 hr 06/03/18 11:14 Pulse Rate 66 Respiratory Rate 18 Blood Pressure 118/77 Pulse Oximetry 95 <Meghan Rodriguez DO - Last Filed: 06/04/18 08:34> Vital Signs - 8 hr 06/03/18 11:14 Pulse Rate 66 Respiratory Rate 18 Blood Pressure 118/77 Pulse Oximetry 95 MDM - Skin/Abscess/Foreign Bdy <AMARA Harmon - Last Filed: 06/03/18 22:11> MDM Narrative Medical decision making narrative: Normal exam. no lacerations appear to be healing well with good wound approximation. No signs and symptoms of infection. Sutures and andres were removed by the triage nurse. Follow up with primary care provider next week for further evaluation. For any worsening symptoms return to the emergency room. Discharge Plan Departure Patient Disposition: Home Clinical Impression: Laceration of scalp Discharge Date/Time: 06/03/18 14:30 Interventions: ED Discharge Assessment Last Done: 06/03/18 13:30 Instructions: DI for Laceration Repair -- Andres Activity Restrictions/Additional Instructions: normal exam today. Lacerations appear to be healing well with no signs of infection. Follow up with her primary care provider as scheduled next week for further evaluation. For any worsening symptoms return to the emergency room. Prescriptions: No Action naproxen sodium [Aleve] 220 mg Tablet 220 mg PO BID RF: 0 twzqakbqymg-gosvm-uip-vit C-Mn [Flexi Joint] 500-400-166.6 mg Tablet 1 tab PO DAILY RF: 0 lecithin 1 cap PO DAILY RF: 0 oxycodone-acetaminophen [Percocet] 5-325 mg tablet 2 tab PO Q4-6H PRN (Reason: pain) Qty: 15 RF: 0 ondansetron [Zofran ODT] 4 mg tablet,disintegrating 4 mg PO Q6-8H PRN (Reason: nausea and vomiting) Qty: 15 RF: 0 promethazine 25 mg tablet 25 mg PO Q6H PRN (Reason: nausea and vomiting) Qty: 16 RF: 0 Referrals: Jacey Robertson ARNP [Primary Care Provider] - <Meghan Rodriguez DO - Last Filed: 06/04/18 08:34> Cosign ED Attending Michaature Attestation: I was immediately available in the department for consultation. Documentation has been reviewed. I agree with assessment and plan.
[2018-06-03 13:47] VITALS: BP 142/72; PULSE 68; RESP 14; O2SAT 99
== END 2018-06-03 14:30 | disposition home or self-care (01) ==
PROVIDERS: Emergency Provider Nurse Practitioner Family; Family Provider Nurse Practitioner Family; PCP Nurse Practitioner Family
DX: Z48.02 Encounter for removal of sutures (principal)
CPT/HCPCS: 99281; 99282